=== PATIENT | female | born 1960 | race Caucasian/White ===

== ENCOUNTER → 2017-01-24 | Day surgery (SDC) | payer OTHER ==
[2017-01-04 14:38] VITALS: Ht 149.9 cm; Wt 86.8 kg
[~2017-01-24] VITALS: Ht 149.9 cm; Wt 86.8 kg
[~2017-01-24] MED LIST: 500ML BSS 0.3ML EPI 1:1000PF IRRIG ONE; ACETAMINOPHEN 325 MG TAB PO PRN; ALBU1AER9 INH; AMVISC PLUS 0.8ML SYRINGE INT OCU ONE; ASTIN/15 NAE; ATROPINE SULFATE 0.1 MG/ML 5ML SYR IV PRN; BSS FLUSH ONE; DULA1INJ; EpHEDrine SULFATE INJ 50 MG/ML AMP IV PRN; EpINEphrine INJ 1MG/ML AMP 1 MG/ML AMP ONE; GLC/500 PO; GLIP-197 PO; INSDGI SC; LACTATED RINGER'S 1000ML 500 ML IV SCH; LIDOCAINE 3.5% OPH GEL PER APPLICATION CHARGE ONE; LIDOCAINE HCL 1% MPF 2 ML VIAL ONE; MIDAZOLAM HCL 1 MG/ML 2ML VIAL ONE; MULT-506 PO; OCUCOAT 1 ML SOLN IO ONE; POVIDONE-IODINE OP SOLN 30 ML BTL ONE; PRDFOPS/10 OPR; PROPARACAINE 0.5% OP SOLN PER DROP CHARGE OPR SCH; TOBRAMYCIN/DEXAMETHASONE OPH OINT PER APPLN CHARGE ONE; TRAM-10 PO
[2017-01-24] MEDS: PHENYLEPHRINE HCL 2.5% OP SOLN PER DROP CHARGE OPR SCH ×2 (07:31→07:36)
[2017-01-24] MEDS: TROPICAMIDE 1% OP SOLN PER DROP CHARGE OPR SCH ×2 (07:32→07:37)
[2017-01-24] MEDS: KETOROLAC 0.5% OP SOLN PER DROP CHARGE OPR SCH ×2 (07:34→07:39)
[2017-01-24] MEDS: CYCLOPENTOLATE HCL 1% OP SOLN PER DROP CHARGE OPR SCH ×2 (07:34→07:38)
[2017-01-24] MEDS: GATIFLOXACIN OP SOLN PER DROP CHARGE OPR SCH ×2 (07:35→07:45)
--- NOTE | 2017-01-24 07:50 | History & Physical Bridge - [place] ---
H&P Re-Evaluation Bridge Note: I have examined the patient, reviewed the History & Physical and in the interval since the performance of the History & Physical I have noted the following changes of clinical significance: No changes noted
--- NOTE | 2017-01-24 08:33 | Discharge Instructions-SurgCtr ---
Discharge Instructions Date of Service January 24, 2017. Visit Reason for Visit: Cataract Right Eye Discharge Discharge Diagnosis / Problem: cataract Discharge Goals Goal(s): Improve function Activity Recommendations Activity Limitations: per Instructions/Follow-up section Anesthesia . Post Anesthesia Instructions: If you have had General Anesthesia or IV Sedation: * Do not drive today. * Resume driving when surgeon permits. * Do not make important decisions or sign legal documents today. * Call surgeon for: 1. Temperature elevations greater than 101 degrees F. 2. Uncontrollable pain. 3. Excessive bleeding. 4. Persistent nausea and vomiting. 5. Medication intolerance (nausea, vomiting or rash). * For nausea and vomiting use only clear liquids such as: tea, soda, bouillon until nausea subsides, then gradually increase diet as tolerated. * If you have any concerns or questions, call your surgeon's office. If physician is unavailable and it is an emergency, call 911 or go to the nearest emergency room. . Instructions / Follow-Up Instructions / Follow-Up ACTIVITY RECOMMENDATIONS: * No strenuous lifting, jogging or running for 4 days * No swimming or yard work for 1 week. * Limited bending is permitted, such as putting on shoes. RETURN TO SCHOOL/WORK: No work until seen by physician in office. MEDICATIONS: Resume previous medications unless instructed otherwise by your surgeon. This includes eye drops for glaucoma. Zymaxid/Gatifloxacin (gurrola cap) - one drop every 2 hours until bedtime Nevanac/Ilevro/Prolensa/Ketorolac (cardona cap) - one drop every 4 hours until bedtime Prednisolone (white/pink cap, SHAKE WELL) - one drop every 2 hours until bedtime Starting tomorrow - all 3 drops every 4 hours until seen in the office Optive drops - as needed for discomfort SPECIAL CARE INSTRUCTIONS: * Wear eyeshield when sleeping, for four nights. * You may wear your own glasses or sunglasses while awake. * You may read or watch TV * You may shower and wash your face, but be gentle around the eye and pat dry. * Blurry vision and mild irritation are normal. * Call office if pain is more severe or vision becomes dark at . FOLLOW UP VISIT: Follow-up with Dr Saxena tomorrow. Diet Recommendations Home Diet: resume previous diet Procedures Procedures Performed: Right Cataract Phacoemulsification With Intraocular Lens Implant Pending Studies Studies pending at discharge: no Medical Emergencies . Who to Call and When: Medical Emergencies: If at any time you feel your situation is an emergency, please call 911 immediately. . Non-Emergent Contact Non-Emergency issues call your: Litigation Partner . . "Provider Documentation" section prepared by Wayne Saxena. .
--- NOTE | 2017-01-24 08:34 | [facility] Operative Report ---
Operative Report Date of Service January 24, 2017. Operative Report 1. PREOPERATIVE DIAGNOSIS: Cataract of the right eye. 2. POSTOPERATIVE DIAGNOSIS: Same. 3. PROCEDURE: Phacoemulsification with intraocular lens implantation of the right eye. SURGEON: Dr. Wayne Saxena. ANESTHESIA: Topical Lidocaine gel, 1% Non- Preserved intracameral Lidocaine, and monitored intravenous sedation. INDICATIONS FOR THE PROCEDURE: The patient is a 56 - year-old female with a history of cataract of the right eye causing significant visual impairment. The details of the proposed procedure were explained to the patient who asked appropriate questions and following discussion of all risks, benefits and alternatives agreed to have the procedure done. 4. OPERATION AND FINDINGS: DESCRIPTION OF PROCEDURE: After informed consent was obtained, the patient was brought to the Operating Room at the [facility]. The patient was placed in a supine position and then the right eye was prepped and draped in the usual sterile fashion for intraocular surgery. A drop of topical Lidocaine gel was placed in the operative eye. A wire lid speculum was then placed in the fornices. A corneal paracentesis was then created temporally. The Non-Preserved Lidocaine was then instilled into the anterior chamber. The anterior chamber was then pressurized with viscoelastic. A 2.0 mm clear corneal incision was then created temporally. A cystotome was inserted into the anterior chamber and used to create a tear in the anterior lens capsule. This capsular tear was then used to create a small flap and the flap was dragged in a counterclockwise direction in order to create a continuous curvilinear capsulorrhexis. Hydrodissection was accomplished with balanced salt solution. Phacoemulsification of the lens nucleus was then performed in a standard [id number] technique. The phaco time was 18 seconds with an average power of 8 %. The remaining cortical material was removed using irrigation aspiration. The capsular bag was then filled with viscoelastic. A Bausch & Lomb MI60L +26.5 diopters lens was then loaded into the injector and injected into the capsular bag. The remaining viscoelastic was removed with the irrigation aspiration handpiece. The wound was hydrated and then checked and found to be watertight. The intraocular pressure was checked and found to be adequate. The wire lid speculum was removed and the patient's face was cleaned and dried. TobraDex ointment was placed in the inferior fornix. The patient was discharged to the Recovery Room having tolerated the procedure well. There were no complications. The patient will be seen tomorrow in the office for follow-up. I attest to the content of the Intraoperative Record and any orders documented therein. Any exceptions are noted below.
[2017-01-24 08:36] VITALS: TEMP 36.8
--- NOTE | 2017-01-24 08:38 | Anesthesia Progress Nt - [facility] ---
Anesthesia Post Op Note Date & Time January 24, 2017 at 08:38 Vital Signs Pain Intensity: 0 Vital Signs Past 12 Hours Date Time Temp Pulse Resp B/P Pulse Ox O2 Delivery O2 Flow Rate FiO2 01/24/17 07:18 36.7 85 18 116/77 97 Room Air Notes Mental Status: alert / awake / arousable, participated in evaluation Pt Amnestic to Procedure: Yes Nausea / Vomiting: adequately controlled Pain: adequately controlled Airway Patency, RR, SpO2: stable & adequate BP & HR: stable & adequate Hydration State: stable & adequate Anesthetic Complications: no major complications apparent
[2017-01-24 08:59] VITALS: BP 126/91; PULSE 79; O2SAT 98
== END | disposition home or self-care (01) ==
LOC: X.SURG 07:05
PROVIDERS: ATTEND Ophthalmology
DX: H25.013 Cortical age-related cataract, bilateral (principal); E11.9 Type 2 diabetes mellitus without complications; Z79.84 Long term (current) use of oral hypoglycemic drugs; Z87.891 Personal history of nicotine dependence; E66.9 Obesity, unspecified; J30.1 Allergic rhinitis due to pollen; J45.909 Unspecified asthma, uncomplicated; M06.9 Rheumatoid arthritis, unspecified; K21.9 Gastro-esophageal reflux disease without esophagitis; I10 Essential (primary) hypertension; E78.5 Hyperlipidemia, unspecified

== ENCOUNTER → 2017-02-14 | Day surgery (SDC) | payer OTHER ==
[2017-02-01 14:37] VITALS: Ht 149.9 cm; Wt 86.8 kg
[~2017-02-14] VITALS: Ht 149.9 cm; Wt 86.8 kg
[~2017-02-14] MED LIST changes: -EpHEDrine SULFATE INJ 50 MG/ML AMP IV PRN; -PRDFOPS/10 OPR; +PROPARACAINE 0.5% OP SOLN PER DROP CHARGE OPL SCH; -PROPARACAINE 0.5% OP SOLN PER DROP CHARGE OPR SCH
[2017-02-14] MEDS: PHENYLEPHRINE HCL 2.5% OP SOLN PER DROP CHARGE OPL SCH ×2 (06:32→06:38)
[2017-02-14] MEDS: TROPICAMIDE 1% OP SOLN PER DROP CHARGE OPL SCH ×2 (06:33→06:39)
[2017-02-14] MEDS: CYCLOPENTOLATE HCL 1% OP SOLN PER DROP CHARGE OPL SCH ×2 (06:34→06:39)
[2017-02-14] MEDS: KETOROLAC 0.5% OP SOLN PER DROP CHARGE OPL SCH ×2 (06:35→06:41)
[2017-02-14] MEDS: GATIFLOXACIN OP SOLN PER DROP CHARGE OPL SCH ×2 (06:36→06:46)
--- NOTE | 2017-02-14 07:23 | Discharge Instructions-SurgCtr ---
Discharge Instructions Date of Service Feb 14, 2017. Visit Reason for Visit: Cataract Left Eye Discharge Discharge Diagnosis / Problem: cataract Discharge Goals Goal(s): Improve function Activity Recommendations Activity Limitations: per Instructions/Follow-up section Anesthesia . Post Anesthesia Instructions: If you have had General Anesthesia or IV Sedation: * Do not drive today. * Resume driving when surgeon permits. * Do not make important decisions or sign legal documents today. * Call surgeon for: 1. Temperature elevations greater than 101 degrees F. 2. Uncontrollable pain. 3. Excessive bleeding. 4. Persistent nausea and vomiting. 5. Medication intolerance (nausea, vomiting or rash). * For nausea and vomiting use only clear liquids such as: tea, soda, bouillon until nausea subsides, then gradually increase diet as tolerated. * If you have any concerns or questions, call your surgeon's office. If physician is unavailable and it is an emergency, call 911 or go to the nearest emergency room. . Instructions / Follow-Up Instructions / Follow-Up ACTIVITY RECOMMENDATIONS: * No strenuous lifting, jogging or running for 4 days * No swimming or yard work for 1 week. * Limited bending is permitted, such as putting on shoes. RETURN TO SCHOOL/WORK: No work until seen by physician in office. MEDICATIONS: Resume previous medications unless instructed otherwise by your surgeon. This includes eye drops for glaucoma. Zymaxid/Gatifloxacin (gurrola cap) - one drop every 2 hours until bedtime Nevanac/Ilevro/Prolensa/Ketorolac (cardona cap) - one drop every 4 hours until bedtime Prednisolone (white/pink cap, SHAKE WELL) - one drop every 2 hours until bedtime Starting tomorrow - all 3 drops every 4 hours until seen in the office Optive drops - as needed for discomfort SPECIAL CARE INSTRUCTIONS: * Wear eyeshield when sleeping, for four nights. * You may wear your own glasses or sunglasses while awake. * You may read or watch TV * You may shower and wash your face, but be gentle around the eye and pat dry. * Blurry vision and mild irritation are normal. * Call office if pain is more severe or vision becomes dark at . FOLLOW UP VISIT: Follow-up with Dr Saxena tomorrow. Diet Recommendations Home Diet: resume previous diet Procedures Procedures Performed: Left Cataract Phacoemulsification With Intraocular Lens Implant Pending Studies Studies pending at discharge: no Medical Emergencies . Who to Call and When: Medical Emergencies: If at any time you feel your situation is an emergency, please call 911 immediately. . Non-Emergent Contact Non-Emergency issues call your: Electric Motorman . . "Provider Documentation" section prepared by Wayne Saxena. .
--- NOTE | 2017-02-14 07:23 | [facility] Operative Report ---
Operative Report Date of Service Feb 14, 2017. Operative Report 1. PREOPERATIVE DIAGNOSIS: Cataract of the left eye. 2. POSTOPERATIVE DIAGNOSIS: Same. 3. PROCEDURE: Phacoemulsification with intraocular lens implantation of the left eye. SURGEON: Dr. Wayne Saxena. ANESTHESIA: Topical Lidocaine gel, 1% Non- Preserved intracameral Lidocaine, and monitored intravenous sedation. INDICATIONS FOR THE PROCEDURE: The patient is a 57 - year-old female with a history of cataract of the left eye causing significant visual impairment. The details of the proposed procedure were explained to the patient who asked appropriate questions and following discussion of all risks, benefits and alternatives agreed to have the procedure done. 4. OPERATION AND FINDINGS: DESCRIPTION OF PROCEDURE: After informed consent was obtained, the patient was brought to the Operating Room at the [facility]. The patient was placed in a supine position and then the left eye was prepped and draped in the usual sterile fashion for intraocular surgery. A drop of topical Lidocaine gel was placed in the operative eye. A wire lid speculum was then placed in the fornices. A corneal paracentesis was then created temporally. The Non-Preserved Lidocaine was then instilled into the anterior chamber. The anterior chamber was then pressurized with viscoelastic. A 2.0 mm clear corneal incision was then created temporally. A cystotome was inserted into the anterior chamber and used to create a tear in the anterior lens capsule. This capsular tear was then used to create a small flap and the flap was dragged in a counterclockwise direction in order to create a continuous curvilinear capsulorrhexis. Hydrodissection was accomplished with balanced salt solution. Phacoemulsification of the lens nucleus was then performed in a standard [id number] technique. The phaco time was 18 seconds with an average power of 7 %. The remaining cortical material was removed using irrigation aspiration. The capsular bag was then filled with viscoelastic. A Bausch & Lomb MI60L +27.0 diopters lens was then loaded into the injector and injected into the capsular bag. The remaining viscoelastic was removed with the irrigation aspiration handpiece. The wound was hydrated and then checked and found to be watertight. The intraocular pressure was checked and found to be adequate. The wire lid speculum was removed and the patient's face was cleaned and dried. TobraDex ointment was placed in the inferior fornix. The patient was discharged to the Recovery Room having tolerated the procedure well. There were no complications. The patient will be seen tomorrow in the office for follow-up. I attest to the content of the Intraoperative Record and any orders documented therein. Any exceptions are noted below.
[2017-02-14 07:25] VITALS: TEMP 36.4
--- NOTE | 2017-02-14 07:41 | Anesthesia Progress Nt - [facility] ---
Anesthesia Post Op Note Date & Time Feb 14, 2017 at 07:41 Vital Signs Pain Intensity: 0 Vital Signs Past 12 Hours Date Time Temp Pulse Resp B/P (MAP) Pulse Ox O2 Delivery O2 Flow Rate FiO2 02/14/17 07:25 36.4 84 14 98/71 (80) 99 Room Air 02/14/17 06:29 36.6 74 16 127/89 (102) 98 Room Air Notes Mental Status: alert / awake / arousable, participated in evaluation Pt Amnestic to Procedure: Yes Nausea / Vomiting: adequately controlled Pain: adequately controlled Airway Patency, RR, SpO2: stable & adequate BP & HR: stable & adequate Hydration State: stable & adequate Anesthetic Complications: no major complications apparent
[2017-02-14 07:47] VITALS: BP 134/80; PULSE 69; O2SAT 99
== END | disposition home or self-care (01) ==
LOC: X.SURG 06:09
PROVIDERS: ATTEND Ophthalmology
DX: H26.9 Unspecified cataract (principal); E11.36 Type 2 diabetes mellitus with diabetic cataract; J45.909 Unspecified asthma, uncomplicated; E66.9 Obesity, unspecified; G47.33 Obstructive sleep apnea (adult) (pediatric); Z98.41 Cataract extraction status, right eye; Z79.4 Long term (current) use of insulin; Z88.0 Allergy status to penicillin; Z88.2 Allergy status to sulfonamides; Z88.5 Allergy status to narcotic agent; Z90.89 Acquired absence of other organs

== ENCOUNTER 2017-02-17 09:55 | Emergency (ER) | payer OTHER ==
[~2017-02-17] VITALS: Ht 149.9 cm; Wt 90.9 kg
[~2017-02-17 09:55] MED LIST changes: -500ML BSS 0.3ML EPI 1:1000PF IRRIG ONE; -ACETAMINOPHEN 325 MG TAB PO PRN; -AMVISC PLUS 0.8ML SYRINGE INT OCU ONE; -ATROPINE SULFATE 0.1 MG/ML 5ML SYR IV PRN; -BSS FLUSH ONE; -EpINEphrine INJ 1MG/ML AMP 1 MG/ML AMP ONE; -LACTATED RINGER'S 1000ML 500 ML IV SCH; -LIDOCAINE 3.5% OPH GEL PER APPLICATION CHARGE ONE; -LIDOCAINE HCL 1% MPF 2 ML VIAL ONE; -MIDAZOLAM HCL 1 MG/ML 2ML VIAL ONE; -OCUCOAT 1 ML SOLN IO ONE; -POVIDONE-IODINE OP SOLN 30 ML BTL ONE; -PROPARACAINE 0.5% OP SOLN PER DROP CHARGE OPL SCH; -TOBRAMYCIN/DEXAMETHASONE OPH OINT PER APPLN CHARGE ONE; -TRAM-10 PO
[2017-02-17 10:01] VITALS: TEMP 36.9; Ht 149.9 cm; Wt 90.9 kg
--- NOTE | 2017-02-17 11:54 | DIAGNOSTIC IMAGING REPORT ---
PELVIS 1 OR 2 VIEW ROUTINE CLINICAL HISTORY: Pelvic pain status post trauma COMPARISON STUDY: No previous studies for comparison. FINDINGS: The bones are mildly osteopenic. No acute fractures are visualized. There is no SI joint diastases. There is no symphysis diastases. IMPRESSION: No fractures identified. Electronically signed by: Rajat Camejo M.D. 02/17/2017 11:53 AM Dictated Date/Time: 02/17/2017 11:52 AM
--- NOTE | 2017-02-17 11:55 | DIAGNOSTIC IMAGING REPORT ---
RIGHT TIBIA AND FIBULA 2 VIEWS CLINICAL HISTORY: Fall with right leg pain. FINDINGS: AP and lateral views of the right tibia and fibula are obtained. No prior studies are available for comparison at the time of dictation. The skeletal structures are osteopenic. There is no radiographic evidence of right tibial or fibular fracture. The knee and ankle joints are grossly maintained. Minimal soft tissue edema is present in the right lower extremity. There is atherosclerotic calcification of the regional arteries. A plantar calcaneal enthesophyte is observed. IMPRESSION: Mild soft tissue swelling with no acute bony abnormality identified. Electronically signed by: Roberto Seaman M.D. 02/17/2017 11:54 AM Dictated Date/Time: 02/17/2017 11:53 AM
--- NOTE | 2017-02-17 11:56 | DIAGNOSTIC IMAGING REPORT ---
L-SPINE MIN 4 VIEWS ROUTINE CLINICAL HISTORY: Lower back pain status post trauma COMPARISON STUDY: No previous studies for comparison. FINDINGS: No acute fractures or dislocations are visualized. There are minor T12 endplate concavities, likely old. There is moderate L5-S1 facet joint arthropathy. IMPRESSION: No acute fractures or traumatic subluxations are visualized Electronically signed by: Rajat Camejo M.D. 02/17/2017 11:55 AM Dictated Date/Time: 02/17/2017 11:53 AM
--- NOTE | 2017-02-17 11:57 | DIAGNOSTIC IMAGING REPORT ---
RIGHT ANKLE MIN 3 VIEWS ROUTINE, RIGHT FOOT MIN 3 VIEWS ROUTINE CLINICAL HISTORY: Fall. Right ankle and foot pain. COMPARISON STUDY: None. FINDINGS: Mild soft tissue swelling within the ankle. Tiny plantar heel spur. No acute fracture or dislocation within the right ankle or right foot. Tiny well-corticated ossific densities at the lateral malleolus is consistent with old avulsion injuries. IMPRESSION: No acute fracture or dislocation within the right ankle or right foot. Electronically signed by: Steve Mondragon M.D. 02/17/2017 11:56 AM Dictated Date/Time: 02/17/2017 11:53 AM
[2017-02-17 12:54] VITALS: BP 115/100; PULSE 72; O2SAT 97
--- NOTE | 2017-02-17 17:22 | EMERGENCY ROOM VISIT NOTE ---
History Report prepared by Ankit: Chuck Mazariegos Under the Supervision of: Dr. Tom Lozano M.D. First contact with patient: 10:34 Chief Complaint: FALL Stated Complaint: FALL History of Present Illness The patient is a 57 year old female who presents to the Emergency Room with complaints of a fall that occurred this morning. At this time, she slipped secondary to the rain and fell onto her bilateral knees. She then fell onto her left side. She is currently experiencing bilateral burning lower back pain. She rates her pain a 10/10 in severity. She did not hit her head or lose consciousness. She denies any headache, neck pain, arm pain, abdominal pain, chest pain, or upper extremity pain. However, she is feeling some right ankle pain. Her pain worsens with movement. She denies any numbness or loss of bowel/ bladder control. She took an Ibuprofen prior to arrival and does not wish to have any pain medicine here. She does state that she has difficulty weightbearing on the right ankle. Source of History: patient Onset: This morning Position: back (lower) Symptom Intensity: 10/10 Quality: burning Timing: constant Modifying Factors (Worsening): movement Associated Symptoms: No LOC, No headache, No neck pain, No chest pain, No abdominal pain, No numbness Note: She is experiencing right ankle pain. She denies any loss of bladder or bowel control. Review of Systems See HPI for pertinent positives & negatives. A total of 10 systems reviewed and were otherwise negative. Past Medical & Surgical Medical Problems: (1) Bronchitis (2) Diabetes mellitus (3) Tonsillectomy and adenoidectomy Family History Cancer Diabetes mellitus Hypertension Social History Smoking Status: Never Smoker Alcohol Use: none Drug Use: none Marital Status: single Housing Status: lives with family Occupation Status: employed Current/Historical Medications Scheduled Azelastine HCl (Astepro), 1 SPRAY JEEVAN BID Insulin Glargine (Lantus), 20 UNITS SC QPM Metformin Hcl (Glucophage), 500 MG PO BID Multivitamin (Multivitamin), 1 TAB PO QAM Miscellaneous Medications Dulaglutide (Trulicity) Allergies Coded Allergies: Codeine (Verified Allergy, Severe, "COULD HAVE ", 02/17/17) Penicillins (Verified Allergy, Severe, "THROAT SWELLS", 02/17/17) Peanut (Verified Allergy, Intermediate, ITCHY THROAT, 02/17/17) Peanut-containing Drug Products (Verified Allergy, Intermediate, ITCHY THROAT, 02/17/17) Sulfa Antibiotics (Verified Allergy, Intermediate, "DRY MOUTH, HEART RACES ", 02/17/17) Physical Exam Vital Signs Date Time Temp Pulse Resp B/P (MAP) Pulse Ox O2 Delivery O2 Flow Rate FiO2 02/17/17 12:54 72 20 115/100 97 02/17/17 11:57 80 18 119/81 98 Room Air 02/17/17 10:01 36.9 86 18 137/72 100 Room Air Physical Exam Constitutional: Vital signs reviewed. Eyes: Pupils are equal round reactive to light. Conjunctiva are noninjected. ENT: Pharynx is clear without erythema or exudate. Mucous membranes are moist. Neck supple without meningeal signs. Respiratory: Clear to auscultation bilaterally. Breath sounds are equal bilaterally. Cardiovascular: Regular rate and rhythm. No rubs or gallops. GI: Soft, nondistended and nontender. Bowel sounds are present. Musculoskeletal: No midline tenderness to the C-spine or the T-spine. Midline tenderness to the lower L-spine without step off or deformity. No hip tenderness. Mild abrasion to the left lower leg without vaughn tenderness to the leg. Diffuse tenderness to the lateral malleolus of the right ankle without tenderness to the right foot including the base of the fifth metatarsal. No tenderness proximal to the right ankle. Integumentary: No cyanosis. Neurological: The patient is awake and alert. No focal deficits. Motor and sensation are intact throughout the lower extremities. Psychiatric: Normal affect. Medical Decision & Procedures ER Provider Diagnostic Interpretation: Radiology results as stated below per my review and the radiologist's interpretation: RIGHT TIBIA AND FIBULA 2 VIEWS CLINICAL HISTORY: Fall with right leg pain. FINDINGS: AP and lateral views of the right tibia and fibula are obtained. No prior studies are available for comparison at the time of dictation. The skeletal structures are osteopenic. There is no radiographic evidence of right tibial or fibular fracture. The knee and ankle joints are grossly maintained. Minimal soft tissue edema is present in the right lower extremity. There is atherosclerotic calcification of the regional arteries. A plantar calcaneal enthesophyte is observed. IMPRESSION: Mild soft tissue swelling with no acute bony abnormality identified. Electronically signed by: Roberto Seaman M.D. 02/17/2017 11:54 AM Dictated Date/Time: 02/17/2017 11:53 AM PELVIS 1 OR 2 VIEW ROUTINE CLINICAL HISTORY: Pelvic pain status post trauma COMPARISON STUDY: No previous studies for comparison. FINDINGS: The bones are mildly osteopenic. No acute fractures are visualized. There is no SI joint diastases. There is no symphysis diastases. IMPRESSION: No fractures identified. Electronically signed by: Rajat Camejo M.D. 02/17/2017 11:53 AM Dictated Date/Time: 02/17/2017 11:52 AM L-SPINE MIN 4 VIEWS ROUTINE CLINICAL HISTORY: Lower back pain status post trauma COMPARISON STUDY: No previous studies for comparison. FINDINGS: No acute fractures or dislocations are visualized. There are minor T12 endplate concavities, likely old. There is moderate L5-S1 facet joint arthropathy. IMPRESSION: No acute fractures or traumatic subluxations are visualized Electronically signed by: Rajat Camejo M.D. 02/17/2017 11:55 AM Dictated Date/Time: 02/17/2017 11:53 AM RIGHT ANKLE MIN 3 VIEWS ROUTINE, RIGHT FOOT MIN 3 VIEWS ROUTINE CLINICAL HISTORY: Fall. Right ankle and foot pain. COMPARISON STUDY: None. FINDINGS: Mild soft tissue swelling within the ankle. Tiny plantar heel spur. No acute fracture or dislocation within the right ankle or right foot. Tiny well-corticated ossific densities at the lateral malleolus is consistent with old avulsion injuries. IMPRESSION: No acute fracture or dislocation within the right ankle or right foot. Electronically signed by: Steve Mondragon M.D. 02/17/2017 11:56 AM Dictated Date/Time: 02/17/2017 11:53 AM RIGHT ANKLE MIN 3 VIEWS ROUTINE, RIGHT FOOT MIN 3 VIEWS ROUTINE CLINICAL HISTORY: Fall. Right ankle and foot pain. COMPARISON STUDY: None. FINDINGS: Mild soft tissue swelling within the ankle. Tiny plantar heel spur. No acute fracture or dislocation within the right ankle or right foot. Tiny well-corticated ossific densities at the lateral malleolus is consistent with old avulsion injuries. IMPRESSION: No acute fracture or dislocation within the right ankle or right foot. Electronically signed by: Steve Mondragon M.D. 02/17/2017 11:56 AM Dictated Date/Time: 02/17/2017 11:53 AM ED Course 1034: The patient was evaluated in room A4. A complete history and physical exam was performed. 1224: Upon reevaluation, the patient appeared to have improvement of her symptoms. I discussed conner's findings with her. She verbalized agreement of the treatment plan. She will follow up with her PCP. She was discharged home. Medical Decision This is a 57-year-old female who presents with low back pain and ankle pain after a fall. Differential diagnosis includes compression fracture, contusion, pelvic fracture, ankle fracture, sprain. I did perform a limited focused review of portions of the patient's old chart on the electronic medical record. The patient had a left cataract surgery on February 14, 2017. Blood Pressure Screening: Patient was found to have a slightly elevated blood pressure due to circumstances. I do not believe that the patient requires hypertension monitoring. Medication Reconciliation: I attest that I have personally reviewed the patient' s current medication list. I did evaluate the patient as noted above. The patient declined any pain medicine. I did order x-rays of the lumbar spine, pelvis, ankle, tib-fib and right foot. I did review the images myself as well as the radiology report as described above. There is no evidence of acute fracture or dislocation. I did discuss the test results with the patient. She was given a gel splint for her ankle and a walker to help get around. She was advised follow with her doctor and given a work note. She was discharged in good condition. Impression Primary Impression: Low back pain Additional Impressions: Right ankle injury Fall Scribe Attestation The scribe's documentation has been prepared under my direct and personally reviewed by me in its entirety. I confirm that the note above accurately reflects all work, treatment, procedures, and medical decision making performed by me. Departure Information Dispostion Home / Self-Care Referrals Holly BARROW M.D. (PCP) Forms HOME CARE DOCUMENTATION FORM, IMPORTANT VISIT INFORMATION, Work Instructions Patient Instructions ED Low Back Pain Injury, My [facility] Additional Instructions You have been examined and treated today on an emergency basis only. This is not a substitute for, or an effort to provide, complete comprehensive medical care. It is impossible to recognize and treat all injuries or illnesses in a single emergency department visit. It is therefore important that you follow up closely with your physician. Call as soon as possible for an appointment. Return for worsening symptoms or if you develop fever, vomiting, abdominal pain , loss of control of your bowel or bladder, numbness or weakness to your legs, numbness to your private area, difficulty urinating, or any other concerning symptoms. Problem Qualifiers Primary Impression: Low back pain Chronicity: acute Back pain laterality: bilateral Sciatica presence: without sciatica Qualified Codes: M54.5 - Low back pain Additional Impressions: Right ankle injury Encounter type: initial encounter Qualified Codes: S99.911A - Unspecified injury of right ankle, initial encounter Fall Encounter type: initial encounter Qualified Codes: W19.XXXA - Unspecified fall, initial encounter
== END 2017-02-17 12:56 | disposition home or self-care (01) ==
LOC: EDBD 09:55 → C.EDA 09:56
DX: S99.911A Unspecified injury of right ankle, initial encounter (principal); M54.5 Low back pain; W01.0XXA Fall on same level from slipping, tripping and stumbling without subsequent striking against object, initial encounter; E11.9 Type 2 diabetes mellitus without complications; Z80.9 Family history of malignant neoplasm, unspecified; Z83.3 Family history of diabetes mellitus; Z82.49 Family history of ischemic heart disease and other diseases of the circulatory system; Z79.4 Long term (current) use of insulin; Z79.899 Other long term (current) drug therapy

== ENCOUNTER 2017-02-26 11:26 | Emergency (ER) | payer OTHER ==
[~2017-02-26] VITALS: Ht 149.9 cm; Wt 89.0 kg
[~2017-02-26 11:26] MED LIST changes: -ALBU1AER9 INH; -GLIP-197 PO
[2017-02-26 11:29] VITALS: TEMP 36.5; Ht 149.9 cm; Wt 89.0 kg
[2017-02-26] MEDS ORDERED: TRAMADOL HCL 50 MG TAB PO STA (12:53)
[2017-02-26 13:46] VITALS: BP 121/91; PULSE 87; O2SAT 97
--- NOTE | 2017-02-26 13:58 | DIAGNOSTIC IMAGING REPORT ---
CT SCAN OF THE LUMBAR SPINE WITHOUT IV CONTRAST CLINICAL HISTORY: Fall one week ago with persistent back pain. COMPARISON STUDY: Radiographs of the lumbar spine dated 02/17/2017. TECHNIQUE: CT scan of the lumbar spine is performed from the lower thoracic spine to the sacrum. Images are reviewed in the axial, sagittal, and coronal planes. IV contrast was not administered for this examination. CT DOSE: 1989.18 mGy.cm FINDINGS: The skeletal structures are osteopenic. There is a mild acute to subacute superior endplate compression fracture of L2. No retropulsed fragments are identified. Vertebral body height is otherwise maintained throughout the lumbar spine. There is minimal anterolisthesis at L4-L5. Alignment is otherwise preserved. There is no evidence of spondylolysis. There is near-complete bony fusion of the right facet joint at L4-L5. The transverse and spinous processes are intact. The disc spaces appear maintained. There is no evidence of large disc herniation. The central canal is grossly clear as seen by CT. A large Schmorl's node is seen within the superior endplate of T12. The visualized sacrum and bony pelvis appear intact. The paraspinous soft tissues are within normal limits. The retroperitoneal structures are grossly normal but incompletely evaluated. IMPRESSION: 1. There is a mild acute to subacute superior endplate compression fracture of L2. No retropulsed fragments are identified. 2. No additional fracture is seen. 3. Osteopenia and mild degenerative change as above. Electronically signed by: Roberto Seaman M.D. 02/26/2017 1:56 PM Dictated Date/Time: 02/26/2017 1:51 PM
[2017-02-26] MEDS ORDERED: TRAM-10 PO (14:26)
--- NOTE | 2017-02-26 15:43 | EMERGENCY ROOM VISIT NOTE ---
ED Visit Note First contact with patient: 12:39 Chief Complaint: Severe lower back pain. History of Present Illness: Ms. Mcqueen is a 57-year-old white female who ambulates into the ED complaining of lumbar back pain. Historically patient reports that she has chronic back pain for many years but has never been evaluated. She reports on February 17 she was seen in this ED after she fell off her porch; one step onto her knees and then the ground. While in the ED she had lumbar spine, pelvis, leg, ankle and foot x-rays all which were interpreted as no fractures and she was discharged home. Patient reports since then she is been having severe lumbar back pain. The pain has been constant. She describes her pain as a sharp sensation and rates her discomfort 10/10. She places her discomfort starting at the L2 level to the L5 level. At the L5 level the pain radiates through the gluteal area bilaterally and on the left side radiates into the groin area. Her pain worsens with all movements of the back, palpation of the back and ambulation. She has not identified any alleviating factors related to the pain. She reports that she has been alternating ibuprofen and acetaminophen every 4 hours without relief of her discomfort. She denies any associated symptoms including fevers, chills, sweats, skin eruptions, skin color changes, shortness of breath , chest pain, upper back pain, abdominal pain, nausea, vomiting, diarrhea, constipation, rectal bleeding, black/tarry stools, urinary symptoms, hematuria, genital paresthesias, bowel and bladder dysfunction, lower extremity weakness/ numbness/tingling. Review of Systems: As noted above in history of present illness. 8 body systems were reviewed and found to be negative as noted above. Past Medical History: (1) Bronchitis (2) Diabetes mellitus (3) Tonsillectomy and adenoidectomy Current Medications: Medications Dose Route/Sig Max Daily Dose Days Date Category Dose Instructions Trulicity (Dulaglutide) 0.75 Mg/0.5 Ml Inj 02/14/17 Reported SATURDAYS Multivitamin (Multivitamins) Tab 1 Tab PO QAM 01/04/17 Reported Astepro (Azelastine HCl) 200 Sprays/30 Ml Durbin 1 Durbin JEEVAN BID 01/04/17 Reported Lantus (Insulin Glargine) 100 Unit/Ml Inj 20 Units SC QPM 01/04/17 Reported Glucophage (Metformin Hcl) 500 Mg Tab 500 Mg PO BID 01/04/17 Reported Allergies to Medications: Codeine, penicillin, sulfa. Social History: Patient is currently employed; she feels safe in her home environment; she denies tobacco use. Physical Examination: Vital Signs: Date Time Temp Pulse Resp B/P (MAP) Pulse Ox O2 Delivery O2 Flow Rate FiO2 02/26/17 13:46 87 18 121/91 97 Room Air 02/26/17 11:29 36.5 93 18 124/84 98 Room Air GENERAL: 57-year-old female in mild to moderate distress due to pain, nontoxic- appearing, afebrile and hemodynamically stable. NEUROLOGICAL: Awake, alert and oriented to person, place and time. Answering questions appropriately and following commands. Normal gait. Good hand eye coordination. No focal motor sensory deficits. SKIN: Warm, dry and pink. No soft tissue eruptions or trauma noted. HEENT: Atraumatic and normocephalic. PERRLA. Sclera white and conjunctiva pink. No drainage from naris. Oral cavity moist and pink. Pharynx is nonerythematous or edematous. Speech normal. No lymphadenopathy. Trachea midline. No jugular venous distention. BACK: No tenderness over the bony spine. Mild tenderness starting at the L2 level and gradually increasing distally throughout the sacrum. I do not appreciate any bony deformity, step-offs, swelling, ecchymosis or bony crepitus. Unable to perform straight leg raise tests due to pain and obesity. Decreased range of motion in all movements of the lumbar spine. No CVA tenderness. THORAX: Lungs sounds are clear to auscultation and equal bilaterally with symmetrical chest wall. No wheezing, rales or rhonchi. No crepitus, tenderness , subcutaneous air or deformities noted. HEART: Regular rate and rhythm. No gallops, rubs or murmurs are appreciated. ABDOMEN: Obese, soft and nontender. Positive bowel sounds in all quadrants. No guarding, rigidity or organomegaly. EXTREMITIES: Moves all extremities well on command and with purpose. All distal neurovascular statuses are intact and equal bilaterally. Lower Extremities: No tenderness in the hips, thighs, knees, ankles or feet. 2+ patellar and Achilles deep tendon reflexes intact and equal bilaterally. 4/5 muscle strength in hip flexion, extension and abduction, knee flexion and extension, ankle plantar flexion and dorsiflexion. She was able to distinguish light sensations through all dermatomes of the lower legs. ED Course: Patient is assessed as noted above. Patient's medication list was reviewed. Patient was given 50 mg of Ultram by mouth for pain. Lumbar Spine CT: Was reviewed by myself and the radiologist showing a mild acute superior endplate compression fracture of L2. There is also noted patient has minimal anterolisthesis of L4-L5, near bony fusion of the right facet joint at L4-L5, no evidence of large disc herniation, central canal is grossly clear, large Scj,pr;'s note is seen within the superior endplate of T12 , no visible sacrum or bony pelvic abnormalities. Patient was reassessed multiple times during her stay in the emergency department. Patient's case was reviewed with Dr. Borrego; we agreed on diagnostic approach , treatment, disposition and plan. Patient was educated about today's findings and instructed on her treatment plan ; she verbalizes understanding and agreement with this plan. Clinical Impression: L2 compression endplate fracture. Status post fall. Decision-Making: Initially my differential diagnosis I considered bony fracture , disc herniation, back contusion and other causes. Disposition: Patient discharged home in stable condition; prior to departure she was reassessed and subjectively reported she was feeling better and rated her discomfort 8/10. Plan: A lengthy conversation with the patient she refused narcotics because of her inability to drive and possibly work. Patient was prescribed tramadol 50-100 mg every 6 hours as needed for pain and encouraged to alternate with ibuprofen 600 mg. Additional cough or measures including rest, ice and proper lifting and moving techniques were discussed with the patient. Patient was signed off of work for 5 days. Patient was encouraged to follow-up with family physician for recheck and possible referral as needed. Patient was encouraged return the ED for worsening/uncontrolled pain, fevers, abdominal pain, lower extremity weakness/numbness/tingling, genital paresthesias , bowel and bladder dysfunction or any new/concerning symptoms.
== END 2017-02-26 14:38 | disposition home or self-care (01) ==
LOC: C.EDB 11:28 → C.EDD 14:38
DX: S32.029A Unspecified fracture of second lumbar vertebra, initial encounter for closed fracture (principal); W17.89XA Other fall from one level to another, initial encounter; Y92.019 Unspecified place in single-family (private) house as the place of occurrence of the external cause; E11.9 Type 2 diabetes mellitus without complications; Z98.890 Other specified postprocedural states; Z79.4 Long term (current) use of insulin; Z79.84 Long term (current) use of oral hypoglycemic drugs; Z88.0 Allergy status to penicillin; Z88.2 Allergy status to sulfonamides; Z88.5 Allergy status to narcotic agent